=== PATIENT | female | born 1965 | race Two or more races ===

== ENCOUNTER 2016-12-05 11:33 | Emergency (ER) | payer MEDICAID ==
[~2016-12-05] VITALS: Ht 165.1 cm; Wt 73.1 kg
[2016-12-05 13:11] VITALS: BP 130/91
== END 2016-12-05 13:11 | disposition home or self-care (01) ==
LOC: ED 11:33
DX: N76.0 Acute vaginitis (principal); D89.9 Disorder involving the immune mechanism, unspecified; Z85.3 Personal history of malignant neoplasm of breast

== ENCOUNTER 2017-05-11 12:07 | Emergency (ER) | payer MEDICAID ==
[2017-05-11 12:25] VITALS: BP 133/81
[2017-05-11 13:23] LABS: BASOPHIL % 0.3 % (0-2); PLATELET COUNT 231 x10^3mcL (130-400)
[2017-05-11 13:25] LABS: RED CELL DISTRIBUTION WIDTH 14.8 % (11.5-14.5)
[2017-05-11 13:33] LABS: CALCIUM 8.8 mg/dL (8.5-10.1); CARBON DIOXIDE 25.7 mmol/L (21-32); CHLORIDE SERUM 105 mmol/L (98-107); CREATININE SERUM 0.7 mg/dL (0.6-1.0); GFR1 > 60 mL/min; GLUCOSE SERUM 114 mg/dL (74-106); POTASSIUM SERUM 3.8 mmol/L (3.5-5.1); SODIUM SERUM 137 mmol/L (136-145)
== END 2017-05-11 14:07 | disposition home or self-care (01) ==
LOC: ED 12:07
PROVIDERS: Emergency Medicine
DX: Z51.11 Encounter for antineoplastic chemotherapy (principal); C50.919 Malignant neoplasm of unspecified site of unspecified female breast
CPT/HCPCS: 36415; Q0163

== ENCOUNTER 2017-07-19 13:51 | Emergency (ER) | payer MEDICAID ==
[~2017-07-19] VITALS: Ht 167.6 cm; Wt 72.6 kg
[2017-07-19 13:58] VITALS: Ht 167.6 cm; Wt 72.6 kg
[2017-07-19 17:50] VITALS: BP 120/74
== END 2017-07-19 17:50 | disposition home or self-care (01) ==
LOC: ED 13:51
DX: J06.9 Acute upper respiratory infection, unspecified (principal); Z85.3 Personal history of malignant neoplasm of breast
CPT/HCPCS: J7613

== ENCOUNTER 2018-03-20 14:27 | Emergency (ER) | payer MEDICAID ==
[~2018-03-20] VITALS: Ht 165.1 cm; Wt 72.6 kg
[2018-03-20 14:32] VITALS: Ht 165.1 cm; Wt 72.6 kg
[2018-03-20 15:32] VITALS: BP 122/59
== END 2018-03-20 15:32 | disposition home or self-care (01) ==
LOC: ED 14:27
DX: S01.512A Laceration without foreign body of oral cavity, initial encounter (principal); Y99.8 Other external cause status; X58.XXXA Exposure to other specified factors, initial encounter; Y93.89 Activity, other specified; Y92.89 Other specified places as the place of occurrence of the external cause; Z85.3 Personal history of malignant neoplasm of breast
CPT/HCPCS: J2001

== ENCOUNTER 2018-07-03 09:02 | Emergency (ER) | payer MEDICAID ==
[~2018-07-03] VITALS: Ht 162.6 cm; Wt 71.2 kg
[2018-07-03 09:05] VITALS: Ht 162.6 cm; Wt 71.2 kg
[2018-07-03 11:42] LABS: microscopic required? YES; urine erythrocyte 2+ (NEGATIVE)
[2018-07-03 12:32] VITALS: BP 121/72
== END 2018-07-03 12:32 | disposition home or self-care (01) ==
LOC: ED 09:02
PROVIDERS: Emergency Medicine
DX: J02.9 Acute pharyngitis, unspecified (principal); R31.29 Other microscopic hematuria; Z85.3 Personal history of malignant neoplasm of breast